=== PATIENT | male | born 2000 | race Hispanic/Latino ===

== ENCOUNTER 2021-06-13 14:52 | Emergency (ER) | payer OTHER, SELFPAY ==
[2021-06-13 15:04] VITALS: BP 188/109; PULSE 67; RESP 17; TEMP 36.6; O2SAT 99; BMI 33.5
--- NOTE | 2021-06-13 15:46 | ED.WOUNDLAC ---
HPI - Wound/Laceration General Chief Complaint: Wound/Laceration Stated Complaint: Cut on Left Pointer Finger Time Seen by Provider: 06/13/21 15:32 Source: patient and other Mode of arrival: Ambulatory Limitations: language barrier History of Present Illness HPI narrative: 21-year-old American-speaking male who is here for evaluation of a cut to his left index finger. He is here with a co-worker who is providing translation. Patient received a tetanus shot here in the emergency department. He cut the end of his finger with a saw all at work. Covered with a bandage prior to arrival. Related Data Home Medications Medication Instructions Recorded Confirmed No Known Home Medications 06/13/21 06/13/21 Allergies Allergy/AdvReac Type Severity Reaction Status Date / Time No Known Drug Allergies Allergy Verified 06/13/21 15:06 Review of Systems Musculoskeletal Comments: Pain to the end of his finger Integumentary/Breasts Comments: Cut the end of his finger Neurologic Comments: No tingling to his finger Hematologic/Lymphatic On Anticoagulants: No Patient History Medical History Patient denies medical problems Social History Smoking Status: Never smoker Smoking Status: Never smoker alcohol intake frequency: other Substance Use Type: does not use Exam Initial Vital Signs Initial Vital Signs: Vital Signs Temperature 98 F 06/13/21 15:04 Pulse Rate 67 06/13/21 15:04 Respiratory Rate 17 06/13/21 15:04 Blood Pressure 188/109 H 06/13/21 15:04 Pulse Oximetry 99 06/13/21 15:04 Cardio Pulses: radial pulses present on the left Skin Other: Patient does have a superficial skin avulsion to the distal aspect of his left index finger. There is no bone involvement. There is no nail involvement. Neuro Other: No sensory deficits proximal to the cut Extrem Other: Patient with a small skin avulsion to the distal aspect of his left index finger Procedures Nerve Block Nerve Block 1: Time out performed: Yes Local Anesthetic: lidocaine 1% and with bicarb Amount of anesthesia used (mL): 4 Nerve Blocks: digital Procedure Successful: Yes Patient Tolerated Procedure: Well and No complications Course Orders Ordered: ED Orders 06/13/21 16:37 XR finger LT min 2V Stat Discontinued Medications Diphtheria/Tetanus/Acell Pertussis (Tet,Diph,Pertuss(Acell),Vac/Pf 0.5 Ml Syringe) 0.5 ml IM .ONCE ONE Stop: 06/13/21 15:07 Last Admin: 06/13/21 15:52 Dose: 0.5 ml Documented by: TRICIA Lidocaine/Sodium Bicarbonate (Lido 1%/Sod Bicarb 8.4% (10ml) 10 Ml Syringe) 10 ml INJ NOW ONE Stop: 06/13/21 15:48 Last Admin: 06/13/21 15:54 Dose: 10 ml Documented by: TRICIA Vital Signs Vital signs: Vital Signs - 8 hr 06/13/21 15:04 Temperature 98 F Pulse Rate 67 Respiratory Rate 17 Blood Pressure 188/109 H Pulse Oximetry 99 MDM - Wound/Laceration Imaging Data Extremity x-ray #1: Radiologist's Impression: [address] [id number] ReportSigned Patient: Teja Raya GMR#: [id number]: [id number]:[id number]/Sex: 21 / MDate of Service: 06/13/21Loc: EDAccession Number: [id number] Procedure: XR finger LT min 2V Ordering Provider: Yakov Rivero D.O. PROCEDURE: XR FINGER LT MIN 2V INDICATIONS: avulsion with saw TECHNIQUE: AP hand, 2 views of the 2nd finger(s) acquired. COMPARISON: None. FINDINGS: Bones: There is suggestion of traumatic amputation involving tip of the 2nd distal phalangeal tuft with subtle cortical defect. No suspicious bony lesions. Soft tissues: Soft tissue defect involving tip of the 2nd digit is seen. No suspicious soft tissue calcifications. IMPRESSION: Traumatic amputation involving tip of the 2nd digit as above. No radiopaque foreign body is seen. Dictated by: Jatinder Guadarrama M.D. on 06/13/2021 at 16:52 Approved by: Jatinder Guadarrama M.D. on 06/13/2021 at 16:53 [facility] Narrative Medical decision making narrative: There were no fractures noted on the x-ray. The wound was cleaned after digital block performed. There is no bony involvement. Unfortunately given the nature of the wound no stitches can be performed here in the ER. The bleeding was stopped with Gelfoam. Translation services provided by his friend. We off the translation line but they declined. Patient did expressed understanding of care instructions. Will hold on any antibiotics for now. Discharge Plan Departure Patient Disposition: Home Clinical Impression: Avulsion of skin Activity Restrictions/Additional Instructions: Mantendr?a el vendaje stacey las pr?ximas 24 a 48 horas. Despu?s de eso, puede quit?rselo y recuperarse con un nuevo vendaje. Puede colocar un anna?ento antibi?brynn sobre el ?vivian. Puede usar Neosporin para esto. Saranap deber?a curarse por s? solo, magdy llevar? alg?n tiempo. Regrese al departamento de emergencias por cualquier s?ntoma nuevo o que empeore: Prescriptions: No Action No Known Home Medications RF: 0
[2021-06-13] MEDS: TET,DIPH,PERTUSS(ACELL),VAC/PF 0.5 ML SYRINGE IM (15:52)
[2021-06-13] MEDS: LIDO 1%/SOD BICARB 8.4% (10ML) 10 ML SYRINGE INJ (15:54)
--- NOTE | 2021-06-13 16:37 | DI.RAD.S_ITS ---
PROCEDURE: XR FINGER LT MIN 2V INDICATIONS: avulsion with saw TECHNIQUE: AP hand, 2 views of the 2nd finger(s) acquired. COMPARISON: None. FINDINGS: Bones: There is suggestion of traumatic amputation involving tip of the 2nd distal phalangeal tuft with subtle cortical defect. No suspicious bony lesions. Soft tissues: Soft tissue defect involving tip of the 2nd digit is seen. No suspicious soft tissue calcifications. IMPRESSION: Traumatic amputation involving tip of the 2nd digit as above. No radiopaque foreign body is seen. Dictated by: Jatinder Guadarrama M.D. on 06/13/2021 at 16:52 Approved by: Jatinder Guadarrama M.D. on 06/13/2021 at 16:53
--- NOTE | 2021-06-13 17:43 | PC.NURSE ---
surgifoam and surgicell covering wound. telfa pad placed and wrapped with tube gauze
[2021-06-13 18:35] VITALS: BP 132/76; PULSE 62; RESP 18; O2SAT 98
== END 2021-06-13 18:35 | disposition home or self-care (01) ==
PROVIDERS: Emergency Provider Emergency Medicine
DX: S61.211A Laceration without foreign body of left index finger without damage to nail, initial encounter (principal); W27.0XXA Contact with workbench tool, initial encounter; Y99.0 Civilian activity done for income or pay; Z23 Encounter for immunization
CPT/HCPCS: 64450; 73140; 90471; 99283; 99284; 90715